=== PATIENT | male | born 1985 | race Caucasian/White ===

== ENCOUNTER 2019-07-04 06:52 | Emergency (ER) | payer OTHER ==
[~2019-07-04] VITALS: Ht 185.4 cm; Wt 113.4 kg
[2019-07-04] MEDS ORDERED: CYCLOBENZAPRINE5 MG PO (08:06)
[2019-07-04] MEDS ORDERED: ACETAMINOPHEN-1 EAC2 PO (08:06)
[2019-07-04] MEDS ORDERED: IBUPROFEN 800800 M1 PO (08:06)
[2019-07-04 08:30] VITALS: BP 120/75
== END 2019-07-04 08:30 | disposition home or self-care (01) ==
LOC: M.ERS 06:52
DX: M54.2 Cervicalgia (principal); R20.0 Anesthesia of skin; Z98.890 Other specified postprocedural states; V89.2XXA Person injured in unspecified motor-vehicle accident, traffic, initial encounter; Y92.89 Other specified places as the place of occurrence of the external cause; Y93.89 Activity, other specified; Y99.8 Other external cause status